=== PATIENT | female | born 1975 | race Caucasian/White ===

== ENCOUNTER 2021-10-15 21:47 | Emergency (ER) | payer OTHER ==
[2021-10-15 22:32] LABS: BASOPHIL 0.7 % (0-2); HCT 40.5 % (37.0-47.0); HGB 12.5 g/dl (12.5-16.0); LYMPHOCYTE 30.7 % (15-48); MCH 23.3 pg (25.0-31.0); MCHC 30.9 g/dL (32.0-36.0); MCV 75.6 fL (78.0-100.0); MONOCYTE 7.3 % (0-12); MPV 11.5 fL (6.0-9.5); NEUTROPHIL 58.9 % (41-80); NRBC 0; PLT 369 K/uL (150-400); RBC 5.36 M/uL (4.20-5.40); RDW 18.5 % (11.5-14.0); WBC 8.4 K/uL (4.0-10.5)
[2021-10-15 22:52] LABS: BUN 10 mg/dL (7-18); BUN/CREAT RATIO (CALC) 11.8 RATIO; CHLORIDE 100 mmol/L (98-107); CO2 (BICARBONATE) 26 mmol/L (21-32); CREATININE 0.85 mg/dL (0.51-0.95); GLUCOSE 111 mg/dL (74-106); POTASSIUM 3.9 mmol/L (3.5-5.1)
== END 2021-10-15 23:46 | disposition home or self-care (01) ==
LOC: FER 21:47
PROVIDERS: Nurse Practitioner Family
DX: S00.83XA Contusion of other part of head, initial encounter (principal); R42 Dizziness and giddiness; Z88.2 Allergy status to sulfonamides; X30.XXXA Exposure to excessive natural heat, initial encounter; Y92.89 Other specified places as the place of occurrence of the external cause; Y99.0 Civilian activity done for income or pay
CPT/HCPCS: 36415; 70450; 72125; 80048; 84484; 85025; 93005; J7030